=== PATIENT | male | born 1955 | race Caucasian/White ===

== ENCOUNTER 2018-10-11 07:53 | Day surgery (SDC) | payer BC ==
[~2018-10-11 07:53] MED LIST: Lactated Ringers 1,000 ML IV SCH; Lidocaine 1%/Sod Bicarbonate in NS 8.4% 1 ML Syringe IDERM PRN; Sodium Chloride 0.9% 10 ML Syringe FLUSH PRN
--- NOTE | 2018-10-11 08:13 | PCM.PREANE ---
Preanesthetic Assessment - Anesthesia/Transfusion/Family Hx Anesthesia History: Prior Anesthesia Without Reaction Family History of Anesthesia Reaction: No Transfusion History: No Prior Transfusion(s) - Review of Systems General: No Symptoms Pulmonary: No Symptoms Cardiovascular: No Symptoms Gastrointestinal: No Symptoms Neurological: Tingling (fingers) Other: Reports: Diabetes (137 @ 08:10) - Physical Assessment NPO Status Date: 10/10/18 NPO Status Time: 00:00 Pulse: 68 O2 Sat by Pulse Oximetry: 95 Respiratory Rate: 16 Blood Pressure: 146/89 Temperature: 36.6 C Height: 1.88 m Weight: 102.603 kg ASA Class: 2 Mental Status: Alert & Oriented x3 Airway Class: Mallampati = 2 Dentition: Reports: Implants (top left) Thyro-Mental Finger Breadths: 3 Mouth Opening Finger Breadths: 3 ROM/Head Extension: Full Lungs: Clear to Auscultation, Normal Respiratory Effort Cardiovascular: Regular Rate, Regular Rhythm - Allergies Allergies/Adverse Reactions: Allergies Allergy/AdvReac Type Severity Reaction Status Date / Time No Known Allergies Allergy Verified 10/10/18 15:01 - Blood Blood Available: No Product(s) Available: None - Anesthesia Plan Pre-Op Medication Ordered: None - Acknowledgements Anesthesia Type Planned: MAC Pt an Appropriate Candidate for the Planned Anesthesia: Yes Alternatives and Risks of Anesthesia Discussed w Pt/Guardian: Yes Pt/Guardian Understands and Agrees with Anesthesia Plan: Yes PreAnesthesia Questionnaire HEENT History: Reports: Impaired Vision Cardiovascular History: Reports: High Cholesterol, Hypertension Respiratory History: Reports: None Gastrointestinal History: Reports: Other (See Below) Other Gastrointestinal History: fatty liver disease Genitourinary History: Reports: BPH, Other (See Below) Other Genitourinary History: CKD II, Erectile dysfunction, elevated PSA, proteinuria, prostate biopsy 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 History: Reports: None Musculoskeletal History: Reports: Gout, Other (See Below) Other Musculoskeletal History: back surgery Neurological History: Reports: None Psychiatric History: Reports: Anxiety, Depression, Other (See Below) Other Psychiatric History: insomnia Endocrine/Metabolic History: Reports: Diabetes, Type II Hematologic History: Reports: None Immunologic History: Reports: None Oncologic (Cancer) History: Reports: None Dermatologic History: Reports: None - Past Surgical History HEENT Surgical History: Reports: None Cardiovascular Surgical History: Reports: None Respiratory Surgical History: Reports: None GI Surgical History: Reports: None Male Surgical History: Reports: Prostate Biopsy, Vasectomy Endocrine Surgical History: Reports: None Neurological Surgical History: Reports: None Musculoskeletal Surgical History: Reports: Knee Replacement Oncologic Surgical History: Reports: None Dermatological Surgical History: Reports: None - SUBSTANCE USE Smoking Status *Q: Current Every Day Smoker Tobacco Use Within Last Twelve Months: Snuff/Dip Second Hand Smoke Exposure: No Days Per Week of Alcohol Use: 3 Number of Drinks Per Day: 3 Total Drinks Per Week: 9 Recreational Drug Use History: Yes Recreational Drug Type: Reports: Marijuana/Hashish - HOME MEDS Home Medications: Home Meds Allopurinol [Zyloprim] 200 mg PO DAILY 10/10/18 [History] Aspirin [Kuldip Chewable Aspirin] 81 mg PO DAILY 10/10/18 [History] Lisinopril/Hydrochlorothiazide [Lisinopril-Hctz 20-25 mg Tab] 1 tab PO DAILY [History] Rosuvastatin Calcium 20 mg PO DAILY 10/10/18 [History] Sertraline HCl 100 mg PO DAILY 10/10/18 [History] Sildenafil 100mg 100 mg PO ASDIRECTED PRN 10/10/18 [History] SitaGLIPtin [Januvia] 100 mg PO DAILY 10/10/18 [History] Tamsulosin HCl 0.4 mg PO DAILY 10/10/18 [History] Zolpidem Tartrate 5 mg PO BEDTIME PRN 10/10/18 [History] glyBURIDE [Glyburide] 2.5 mg PO BID 10/10/18 [History] metFORMIN [Glucophage] 850 mg PO BID 10/10/18 [History] - CURRENT (IN HOUSE) MEDS Current Meds: Current Medications Lactated Ringer's (Ringers, Lactated) 1,000 mls @ 125 mls/hr IV ASDIRECTED AMBER Stop: 10/11/18 23:00 Lidocaine/Sodium Bicarbonate (Buffered Lidocaine 1% In Ns 8.4%) 0.25 ml IDERM ONETIME PRN PRN Reason: Prior to IV Start Stop: 10/11/18 18:00 Sodium Chloride (Saline Flush) 10 ml FLUSH ASDIRECTED PRN PRN Reason: Keep Vein Open Stop: 10/11/18 18:00
[2018-10-11] MEDS ORDERED: Propofol 200 MG/20 ML SDV ONE ×2 (08:40→09:11)
[2018-10-11] MEDS ORDERED: fentaNYL 100 MCG/2 ML SDV ONE (08:40)
[2018-10-11] MEDS ORDERED: Midazolam 1 MG/ML 2 ML SDV ONE (08:40)
[2018-10-11] MEDS ORDERED: Lidocaine 1% 4 ML ONE (08:41)
--- NOTE | 2018-10-11 13:59 | OR ---
DATE OF OPERATION: 10/11/2018 SURGEON: Stephan Wolf MD PREOPERATIVE DIAGNOSIS: Colorectal cancer screening. POSTOPERATIVE DIAGNOSIS: 1. Colorectal cancer screening. 2. Diverticulosis. 3. Colon polyps. OPERATION PERFORMED: Screening colonoscopy and polypectomy x3. FINDINGS: He had hawkins-diverticulosis. I identified 3 polyps, all removed in their entirety with the biopsy forceps. ESTIMATED BLOOD LOSS: Minimal. COMPLICATIONS: None. ANESTHESIA: Monitored anesthesia care. DISPOSITION: Stable at the end of the procedure. INDICATIONS: Abraham is a 63-year-old male, 10 years out from his last colonoscopy. He is asymptomatic. He has no family history. He was booked for a screening colonoscopy. He was fully informed of the major risks of the procedure. These include, but are not limited to perforation of the colon, bleeding, the risks of anesthesia, and possibility of further surgery among others. He gave informed consent of what was done. DESCRIPTION OF PROCEDURE: Abraham was brought to the gastro suite and placed in the left lateral decubitus position. He was given monitored anesthesia. A digital rectal exam was performed. This was unremarkable. With copious lubrication, I introduced the colonoscope into the rectum. I advanced the scope with gentle forward pressure keeping the lumen in view at all times. I reached the cecum and documented the cecum photographically. On the way to the cecum, I identified a polyp in the sigmoid colon. This was removed. I then identified a polyp in the cecum and this was also removed. A polyp in the transverse colon was identified, and this was also removed; all with the biopsy forceps in their entirety. His exam lasted 10 minutes. He had no complications and tolerated the procedure well. At the end of the procedure, the scope was withdrawn. He had an excellent bowel prep in the end. He had no complications. PLAN: My office will notify him as to the date of his next colonoscopy. MMODAL /[id number]
== END 2018-10-11 09:53 | disposition home or self-care (01) ==
LOC: JD.SDS 07:53
PROVIDERS: ATTEND Surgery
DX: Z12.11 Encounter for screening for malignant neoplasm of colon (principal); D12.0 Benign neoplasm of cecum; D12.3 Benign neoplasm of transverse colon; K63.5 Polyp of colon; K57.30 Diverticulosis of large intestine without perforation or abscess without bleeding; I12.9 Hypertensive chronic kidney disease with stage 1 through stage 4 chronic kidney disease, or unspecified chronic kidney disease; E11.22 Type 2 diabetes mellitus with diabetic chronic kidney disease; N18.2 Chronic kidney disease, stage 2 (mild); E78.5 Hyperlipidemia, unspecified; M10.9 Gout, unspecified; K76.0 Fatty (change of) liver, not elsewhere classified; F17.210 Nicotine dependence, cigarettes, uncomplicated; N52.9 Male erectile dysfunction, unspecified; Z79.82 Long term (current) use of aspirin; Z79.899 Other long term (current) drug therapy; Z79.84 Long term (current) use of oral hypoglycemic drugs; Z98.890 Other specified postprocedural states
CPT/HCPCS: 00812; 82962; J2001; J2250; J2704; J3010; J7120